=== PATIENT | male | born 1980 | race Caucasian/White ===

== ENCOUNTER → 2017-07-06 | Outpatient (CLI) | payer OTHER ==
[~2017-07-06] MED LIST: AMBIEN 10MG TAB10 MG PO; PRILOSEC20 M1 PO; PROZAC40 MG PO
--- NOTE | 2017-07-06 23:24 | RADIOLOGY REPORT PS360 ---
HAND-LT-3 VIEWS HISTORY: LEFT HAND PAIN DUE TO TRAUMA,ATTN 5TH METACARPAL pain fell Patient Age: 37 years: Male Ordering Physician: Sonal Menendez APRN TECHNIQUE: 3 views left hand COMPARISON :None of left hand. Right hand 3 views from 2011 FINDINGS The left hand is intact with no fracture nor dislocation. Prominent soft tissue swelling overlying the fifth met at carpal evident. No radiopaque foreign body here. Fifth finger intact. Other fingers unremarkable. Carpals intact. IMPRESSION: Left hand intact no fracture
== END ==
LOC: RAD 11:28
DX: M79.642 Pain in left hand (principal); G89.11 Acute pain due to trauma

== ENCOUNTER → 2017-07-28 | Outpatient (CLI) | payer OTHER ==
[2017-07-28 18:37] LABS: LYMPH # 2.1 K/mm3 (0.7-4.5); LYMPH % 33.2 % (10-50)
[2017-07-28 18:39] LABS: HEMOGLOBIN 18.1 g/dL (14.1-18.0)
[2017-07-28 19:50] LABS: BUN 19 mg/dL (7-18)
[2017-07-28 19:52] LABS: GFR (ESTIMATED) 85 ML/MIN (>60)
== END ==
LOC: LAB 17:18
PROVIDERS: Nurse Practitioner Family
DX: R10.31 Right lower quadrant pain (principal); M10.9 Gout, unspecified

== ENCOUNTER → 2017-08-11 | Outpatient (CLI) | payer OTHER ==
--- NOTE | 2017-08-12 06:34 | RADIOLOGY REPORT PS360 ---
PROCEDURE: 2-D M-mode and color Doppler study INDICATIONS FOR THE TEST: Chest pain COPD Heart Murmur Tobacco Smoking Palpitations+ Fatigue Syncope Edema Hypertension Diabetes Mellitus Rheumatic Fever SOB EMERY Obesity Hyperlipidemia Family History HD Additional History PATIENT INFORMATION [id number]: WEIGHT:275 GENDER: Male B/P:118/82 2-D/M-MODE INTERPRETATION: 2-D MEASUREMENTS OBSERVED VALUES IN CMS Right Ventricular Dimension (RVDd) 2.1 Interventricular Septum (Thickness)(IVsd) 1.5 Left Ventricular Internal Dimensions(LVIDd) 5.7 Left Ventricular Posterior Wall (Thickness)(LVPWd) 0.9 Aortic Root 3.7 Aortic Cusp Separation 2.6 Left Atrial Dimensions (LAD) 4.0 2D 1. Left atrium is normal size, left ventricle is normal size, there is no concentric left ventricular hypertrophy, visually estimated ejection fraction of 55% with no obvious regional wall motion abnormality. 2. The right atrium and right ventricle are relatively normal size and function. 3. The aortic valve morphology is not well visualized. 4. The mitral and tricuspid valve are structurally normal. 5. The pulmonic valve is poorly visualized. 6. No significant pericardial effusion noted. DOPPLER INTERROGATION: Doppler interrogation of the aortic, mitral and tricuspid valve reveals presence of mild mitral and tricuspid regurgitation, tricuspid and jet velocity insufficient for calculation of the right ventricular systolic pressure. Diastolic parameters are within normal range. CONCLUSION: 1. Normal left ventricular size, preserved left ventricular systolic function, visually estimated ejection fraction 55% with no obvious regional wall motion abnormality. Diastolic parameters are within normal range. 2. Mild mitral and tricuspid regurgitation. 3. No significant pericardial effusion noted.
== END ==
LOC: RT 08:25
DX: R00.2 Palpitations (principal)

== ENCOUNTER → 2017-08-27 | Outpatient (CLI) | payer OTHER | LOC: SL 15:50 | DX: G47.33 Obstructive sleep apnea (adult) (pediatric) (principal) ==